=== PATIENT | male | born 1950 | race Caucasian/White ===

== ENCOUNTER 2016-12-15 06:28 | Inpatient (IN) | payer BC, OTHER ==
[2016-11-21 12:42] VITALS: BMI 29.0
--- NOTE | 2016-11-21 13:17 | PAT Medication Instructions ---
Service Date Nov 21, 2016. Current Home Medication List Guaifenesin/Codeine (Robitussin-Ac Syrup), 10 ML PO Q4H PRN for Cough Irbesartan (Avapro), 150 MG PO QAM [Dr Katrin Sarabia], 1 DOSE PO QAM Medication Instructions For Your Scheduled Surgery Dr Katrin Sarabia 1 DOSE PO QAM (per surgeon instructions) - Hold the following medications the morning of surgery: Irbesartan (Avapro), 150 MG PO QAM Guaifenesin/Codeine (Robitussin-Ac Syrup), 10 ML PO Q4H PRN for Cough - Take the following medications as scheduled the NIGHT before surgery: Guaifenesin/Codeine (Robitussin-Ac Syrup), 10 ML PO Q4H PRN for Cough If you have any questions please call us at [phone] or [phone] ( Tamara) or [phone]
--- NOTE | 2016-11-21 14:09 | DIAGNOSTIC IMAGING REPORT ---
CHEST 2 VIEWS ROUTINE HISTORY: Preop. COMPARISON: None. FINDINGS: The lungs are clear. Cardiac silhouette is normal in size. No pleural effusions. No pneumothorax. Mildly tortuous thoracic aorta. IMPRESSION: No acute process. Electronically signed by: Nikolas Bravo M.D. 11/21/2016 2:08 PM Dictated Date/Time: 11/21/2016 2:06 PM
[2016-11-21 14:51] LABS: BASO % 0.4 %; BASO ABS # 0.02 K/uL (0-0.2); COMPLETE YES; EOS % 1.2 %; HEMATOCRIT 45.4 % (42-52); IG% 0.2 %; LYMPH % 23.3 %; LYMPH ABS # 1.14 K/uL (1.2-3.4); MEAN CELL VOLUME 84.7 fL (80-100); MEAN CORPUSCULAR HGB CONC 35.5 g/dl (32-36); MEAN PLATELET VOLUME 10.6 fL (7.4-10.4); MONO % 10.4 %; NEUT % 64.5 %; PLATELET COUNT 172 K/uL (130-400); RED BLOOD COUNT 5.36 M/uL (4.7-6.1)
[2016-11-21 15:00] LABS: URINE APPEARANCE CLEAR (CLEAR); URINE BILIRUBIN NEG (NEG); URINE COLOR DK YELLOW; URINE EPITHELIAL CELL AUTO 0-5 /lpf (0-5); URINE NITRITE NEG (NEG); URINE SPECIFIC GRAVITY 1.023 (1.000-1.030); UROBILINOGEN NEG (NEG); ZZUR CULT IF INDIC CLEAN CATCH NO
[2016-11-21 15:01] LABS: PARTIAL THROMBOPLASTIN RATIO 1.2; PROTHROMBIN TIME (PATIENT) 10.8 SECONDS (9.0-12.0)
[2016-11-21 15:03] LABS: MANUAL MICROSCOPIC REQUIRED? NO; REVIEW REQ? NO
[2016-11-21 15:10] LABS: CALCIUM 9.4 mg/dl (8.5-10.1); CREATININE 1.1 mg/dl (0.60-1.40); POTASSIUM 4.6 mmol/L (3.5-5.1)
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
[~2016-12-15] VITALS: Ht 180.3 cm; Wt 94.3 kg
[~2016-12-15 06:28] MED LIST: ACETAMINOPHEN 500 MG TAB PO SCH; CEFAZOLIN 2000 MG/60 ML D5W 60 ML IV SCH; CeleBREX 200 MG CAP PO SCH; DEXAMETHASONE 4 MG TAB PO SCH; FAMOTIDINE 20 MG TAB PO SCH; GABAPENTIN 300 MG CAP PO SCH; GUAISYP4 PO; IRBE-37 PO; LACTATED RINGER'S 1000ML IV SCH; METOCLOPRAMIDE HCL 10 MG TAB PO SCH; OXYCODONE HCL 10 MG TABCR (OXYCONTIN) PO SCH; POLYMYXIN B SULFATE 100,000 UNITS in NSS 100ML IR SCH; ROPIVACAINE 5MG/ML 30 ML 150 MG, BUPIVACAINE/EPINEPHR 0.5% MPF 30 ML, KETOROLAC TROMETH... INFIL SCH; VANCOMYCIN INJ 400 MG in NSS 100ML IR SCH; [UNRECOGNIZED DRUG - REMARK] PO
[2016-12-15] MEDS ORDERED: BUPIVACAINE 0.5 % 5 MG/1 ML PF 10ML VIAL ONE (06:33)
[2016-12-15] MEDS ORDERED: BUPIVACAINE 0.25% 30 ML VIAL ONE (06:34)
[2016-12-15 07:10] VITALS: BP 184/88; PULSE 58; TEMP 36.5; O2SAT 96; Ht 180.3 cm; Wt 94.3 kg
[2016-12-15] MEDS ORDERED: EpHEDrine SULFATE INJ 50 MG/ML AMP IV PRN (07:45)
[2016-12-15] MEDS ORDERED: ATROPINE SULFATE 0.1 MG/ML 5ML SYR IV PRN (07:45)
[2016-12-15] MEDS ORDERED: FENTANYL CITRATE INJ 50 MCG/1 ML 2 ML VIAL IV PRN (07:45)
[2016-12-15] MEDS ORDERED: ONDANSETRON INJ 2 MG/ML 2 ML VIAL IV PRN ×2 (07:45→11:00)
[2016-12-15] MEDS ORDERED: MIDAZOLAM HCL 1 MG/ML 2ML VIAL ONE (07:59)
[2016-12-15] MEDS ORDERED: FENTANYL CITRATE INJ 50 MCG/1 ML 2 ML VIAL ONE (07:59)
[2016-12-15] MEDS: TRANEXAMIC ACID INJ 1,000 MG in SODIUM CHLORIDE 0.9% 100ML 100 ML IV SCH ×2 (08:38→13:12)
--- NOTE | 2016-12-15 08:53 | History & Physical Bridge Note ---
H&P Re-Evaluation Bridge Note: I have examined the patient, reviewed the History & Physical and in the interval since the performance of the History & Physical I have noted the following changes of clinical significance: No changes noted
[2016-12-15] MEDS ORDERED: ORTHO JOINT ANESTHETIC ONE (09:16)
[2016-12-15] MEDS ORDERED: BUPIVACAINE/EPINEPHRINE 0.25% 1:200,000 30 ML VIAL ONE (09:16)
[2016-12-15] MEDS ORDERED: BACITRACIN 50000 UNIT VIAL ONE (09:17)
[2016-12-15] MEDS ORDERED: POVIDONE-IODINE OP SOLN 30 ML BTL ONE (09:17)
--- NOTE | 2016-12-15 10:52 | [facility] Post Operative Brief Note ---
Immediate Operative Summary Operative Date Dec 15, 2016. Pre-Operative Diagnosis Degenerative joint disease, left knee Post-Operative Diagnosis Degenerative joint disease, left knee POST TRAUMATIC Procedure(s) Performed Left Total Knee Arthroplasty Surgeon Dr Manolo Wilkes Sports Commentator Surgeon(s) Evie Manuel PA-C Estimated Blood Loss 50 Findings SEVERE ACL DEF Specimens A: Left knee bone and tissue Complication(s) None Disposition Recovery Room / PACU
[2016-12-15] MEDS ORDERED: PROPOFOL IV EMULSION 10 MG/ML 20 ML VIAL IV ONE (10:54)
[2016-12-15] MEDS ORDERED: LABETALOL HCL IV 5 MG/ML 20ML ONE (10:54)
[2016-12-15] MEDS ORDERED: LIDOCAINE HCL 2% 2 ML VIAL (20MG/ML) ONE (10:54)
[2016-12-15] MEDS ORDERED: MAGNESIUM HYDROXIDE SUSP 30 ML UDC PO PRN (11:00)
[2016-12-15] MEDS ORDERED: KETOROLAC TROMETHAMINE 30 MG/ML VIAL IV. PRN (11:00)
[2016-12-15] MEDS ORDERED: BISACODYL 10 MG SUPP PR PRN (11:00)
[2016-12-15] MEDS ORDERED: ALUMINUM/MAGNESIUM/SIMETH (MAALOX MAX) 30 ML UDC PO PRN (11:00)
[2016-12-15] MEDS ORDERED: TRAMADOL HCL 50 MG TAB PO PRN (11:00)
[2016-12-15] MEDS ORDERED: DiphenhydrAMINE HCL 50 MG/ML VIAL IV PRN (11:00)
[2016-12-15] MEDS ORDERED: OXYCODONE HCL IR 5 MG TAB (IMMEDIATE RELEASE) PO PRN (11:00)
[2016-12-15] MEDS ORDERED: SOD PHOSPHATE/SOD BIPHOSPHATE ENEMA 132 ML BTL PR PRN (11:00)
[2016-12-15] MEDS ORDERED: ZOLPIDEM TARTRATE 5 MG TAB PO PRN (11:00)
[2016-12-15] MEDS ORDERED: TAMSULOSIN HCL 0.4 MG CAP PO PRN (11:00)
[2016-12-15] MEDS ORDERED: METOCLOPRAMIDE HCL INJ 5 MG/ML 2 ML VIAL IV PRN (11:00)
[2016-12-15] MEDS ORDERED: MoRPHine SULFATE 2 MG/ML CARP IV PRN (11:00)
--- NOTE | 2016-12-15 11:41 | OPERATIVE REPORT ---
DATE OF OPERATION: 12/15/2016 PREOPERATIVE DIAGNOSIS: Severe posttraumatic degenerative arthritis, left knee. POSTOPERATIVE DIAGNOSIS: Same. PROCEDURE: Left total knee with patient matched implant. SURGEON: Dr. Wilkes. PLATFORM MATERIAL HANDLING SUPERVISOR: Evie Manuel PA-C. ANESTHESIA: Spinal. BLOOD LOSS: 50 mL. REPLACEMENT FLUIDS: 1500 mL crystalloid. DRAINS: Hemovac x2. CULTURES: None. COMPLICATIONS: None. COMPONENTS USED: [employer] Waneloviper Knee System: Femur size 7, tibia size 7 x 9, patella size 38. NOTE: Evie Manuel PA-C was present and assisted throughout due to the complicated nature of this case. She helped with preparation and set up, first assisted throughout and personally closed the capsule, subcutaneous and skin layers and applied the postoperative dressing. DESCRIPTION: Following satisfactory spinal, the patient was supine. A tourniquet was placed but not inflated. The lower extremity was prepared with ChloraPrep and draped sterilely. Following a surgical time-out, a midline incision was made with a trivector approach. The knee showed severe posttraumatic changes from an old injury and absence of the anterior cruciate. The posterior cruciate ligament was excised. The patient matched femoral block was applied. Femoral distal rotation and resection were set and completed. The 4-in-1 block was used to finish preparation of the femur. The patient matched tibial block was applied. Tibial resection was completed. Patella was freehand cut. Soft tissue balancing was completed and a trial reduction showed good tensioning and stability on the collateral ligaments, stable range of motion, and the patella tracked well. The trial components were removed. The capsule was prepared with the orthopedic cocktail and after irrigation, the components were cemented with Simplex G cement. A Betadine soak was performed while the cement was hardening. When the cement had hardened, the Betadine was irrigated. Two drains were placed. The arthrotomy was closed with a running suture of 0 V-Loc, the subcutaneous tissues were closed with 2-0 Vicryl and the skin with a running subcuticular stitch of 3-0 V-Loc. Dermabond and a dry dressing were applied. The patient was returned to his bed in stable condition. I attest to the content of the Intraoperative Record and any orders documented therein. Any exceptio ns are noted below.
--- NOTE | 2016-12-15 12:14 | DIAGNOSTIC IMAGING REPORT ---
LEFT KNEE 1 OR 2 VIEWS ROUTINE CLINICAL HISTORY: Degenerative arthritis COMPARISON: None. DISCUSSION: There are postsurgical changes of a total left knee arthroplasty and patellar resurfacing. The femoral tibial components appear well seated. There are overlying surgical drains. There is air in soft tissues consistent with recent surgery. IMPRESSION: Postsurgical changes of a total left knee arthroplasty. Electronically signed by: Koko Rivera M.D. 12/15/2016 12:12 PM Dictated Date/Time: 12/15/2016 12:12 PM
--- NOTE | 2016-12-15 12:25 | Anesthesiology Progress Note ---
Anesthesia Post Op Note Date & Time Dec 15, 2016 at 12:26 Vital Signs Pain Intensity: 0 Vital Signs Past 12 Hours Date Time Temp Pulse Resp B/P Pulse Ox O2 Delivery O2 Flow Rate FiO2 12/15/16 12:15 36.2 79 12 141/85 95 Nasal Cannula 2 12/15/16 12:05 83 24 136/78 94 Nasal Cannula 2 12/15/16 11:55 82 18 137/96 97 Nasal Cannula 2 12/15/16 11:45 77 20 140/86 96 Nasal Cannula 2 12/15/16 11:35 79 20 135/96 100 Mask 10 12/15/16 11:25 80 15 149/109 99 Mask 10 12/15/16 11:17 36.6 82 20 163/97 97 Mask 10 12/15/16 07:10 36.5 58 20 184/88 96 Room Air Notes Mental Status: alert / awake / arousable, participated in evaluation Pt Amnestic to Procedure: Yes Nausea / Vomiting: adequately controlled Pain: adequately controlled Airway Patency, RR, SpO2: stable & adequate BP & HR: stable & adequate Hydration State: stable & adequate Neuraxial Anesthesia: was administered, sensory block is resolving Anesthetic Complications: no major complications apparent
[2016-12-15 12:30] VITALS: BP 154/86; PULSE 76; TEMP 36.4; O2SAT 98
[2016-12-15] MEDS: D5W AND 1/2NSS + 20MEQ KCL 1,000 ML IV SCH ×2 (13:22→23:14)
[2016-12-15 13:30] VITALS: BP 150/80; PULSE 75; TEMP 36.3; O2SAT 93
[2016-12-15 15:40] VITALS: BP 124/77; PULSE 78; TEMP 36.7; O2SAT 96
[2016-12-15] MEDS: ACETAMINOPHEN 500 MG TAB PO SCH ×2 (16:19→22:16)
[2016-12-15] MEDS ORDERED: TRANEXAMIC ACID INJ 1,000 MG in SODIUM CHLORIDE 0.9% 100ML 100 ML IV SCH (17:00)
[2016-12-15] MEDS: CEFAZOLIN IV 2,000 MG in DEXTROSE 5% 50ML 50 ML IV SCH (18:18)
[2016-12-15 19:43] VITALS: BP 112/71; PULSE 82; O2SAT 96
[2016-12-15] MEDS ORDERED: SENNA 8.6 MG TAB PO SCH (21:00)
[2016-12-15] MEDS: OXYCODONE HCL 10 MG TABCR (OXYCONTIN) PO SCH (22:15)
[2016-12-15] MEDS: ASPIRIN 81 MG ECTAB PO SCH (22:16)
[2016-12-15 23:15] VITALS: BP 112/68; PULSE 56; TEMP 36.4; O2SAT 95
[2016-12-16] MEDS: CEFAZOLIN IV 2,000 MG in DEXTROSE 5% 50ML 50 ML IV SCH (01:45)
[2016-12-16 03:25] VITALS: BP 117/78; PULSE 67; TEMP 36.4; O2SAT 98
[2016-12-16 05:30] LABS: MEAN CELL VOLUME 83.7 fL (80-100); MEAN CORPUSCULAR HEMOGLOBIN 29.2 pg (25-34); MEAN CORPUSCULAR HGB CONC 34.9 g/dl (32-36); MEAN PLATELET VOLUME 10.2 fL (7.4-10.4); PLATELET COUNT 172 K/uL (130-400); RED BLOOD COUNT 4.18 M/uL (4.7-6.1)
[2016-12-16] MEDS: ACETAMINOPHEN 500 MG TAB PO SCH ×2 (05:32→14:08)
[2016-12-16 05:54] LABS: CREATININE 1.2 mg/dl (0.60-1.40)
[2016-12-16 05:55] LABS: BUN/CREATININE RATIO 16.2 (10-20); CALCIUM 8.4 mg/dl (8.5-10.1); POTASSIUM 4.6 mmol/L (3.5-5.1)
[2016-12-16] MEDS: OXYCODONE HCL 10 MG TABCR (OXYCONTIN) PO SCH (08:23)
[2016-12-16] MEDS: ASPIRIN 81 MG ECTAB PO SCH (08:23)
[2016-12-16 08:38] VITALS: BP 128/70; PULSE 68; TEMP 36.7; O2SAT 95
[2016-12-16] MEDS ORDERED: PANTOprazole SOD 40 MG TAB PO SCH (09:00)
[2016-12-16] MEDS ORDERED: IRBESARTAN 150 MG TAB PO SCH (09:00)
[2016-12-16] MEDS ORDERED: MULTIVITAMIN TAB PO SCH (09:00)
[2016-12-16] MEDS: D5W AND 1/2NSS + 20MEQ KCL 1,000 ML IV SCH (09:30)
[2016-12-16 10:38] VITALS: BP 128/70; PULSE 68; TEMP 36.7; O2SAT 95
[2016-12-16 10:41] VITALS: O2SAT 95
--- NOTE | 2016-12-16 11:09 | Orthopedic Progress Note ---
Orthopedic Progress Note Date of Service Dec 16, 2016. Subjective Post OP Day: 1 Reports: feeling well, pain controlled w PO medications, Denies: SOB, chest pain , complaints, nausea / vomiting Objective calves soft nontender, N/V intact, dressing C/D/I, A&O x3, toes mobile, hemovac drainage (125 LAST SHIFT) Date Time Temp Pulse Resp B/P Pulse Ox O2 Delivery O2 Flow Rate FiO2 12/16/16 10:41 95 Room Air 12/16/16 10:38 36.7 68 16 95 Room Air 12/16/16 08:38 36.7 68 16 128/70 95 Room Air 12/16/16 08:08 Room Air 12/16/16 03:25 36.4 67 16 117/78 98 Room Air 12/15/16 23:20 Room Air 12/15/16 23:15 36.4 56 18 112/68 95 Room Air 12/15/16 19:43 82 18 112/71 96 Room Air 12/15/16 15:40 36.7 78 18 124/77 96 Nasal Cannula 2.0 12/15/16 13:30 36.3 75 18 150/80 93 Nasal Cannula 2.0 12/15/16 12:30 Nasal Cannula 2.0 12/15/16 12:30 Nasal Cannula 2.0 12/15/16 12:30 36.4 76 16 154/86 98 Nasal Cannula 2.0 12/15/16 12:15 36.2 79 12 141/85 95 Nasal Cannula 2 12/15/16 12:05 83 24 136/78 94 Nasal Cannula 2 12/15/16 11:55 82 18 137/96 97 Nasal Cannula 2 12/15/16 11:45 77 20 140/86 96 Nasal Cannula 2 12/15/16 11:35 79 20 135/96 100 Mask 10 12/15/16 11:25 80 15 149/109 99 Mask 10 12/15/16 11:17 36.6 82 20 163/97 97 Mask 10 Laboratory Results 24 Hours: Test 12/16/16 05:15 Hematocrit 35.0 % Hemoglobin 12.2 g/dL Assessment & Plan Assessment: POD 1 TKA Plan: HOME TODAY W [facility] HH LEAVE DRESSING DRAIN IN PLACE Inhouse Planning Pain Management: Celebrex, Oxycontin, PO Tylenol, Oxy IR DVT Prophylaxis: TEDs, SCDs, ASA Discharge Planning Discharge Planning: home with home health Pain Management: Celebrex, Oxycontin, PO Tylenol, Oxy IR DVT Prophylaxis: TEDs, ASA
[2016-12-16] MEDS ORDERED: ONDA8TAB6 PO (11:18)
[2016-12-16] MEDS ORDERED: ACET-1138 PO (11:18)
[2016-12-16] MEDS ORDERED: OXYSR10 PO (11:18)
[2016-12-16] MEDS ORDERED: CLB200 PO (11:18)
[2016-12-16] MEDS ORDERED: RXC5 PO (11:18)
[2016-12-16] MEDS ORDERED: ASPEC81 PO (11:18)
--- NOTE | 2016-12-16 11:20 | Discharge Instructions ---
Discharge Instructions Date of Service Dec 16, 2016. Admission Reason for Admission: Left Knee Degenerative Arthritis Discharge Discharge Diagnosis / Problem: left knee osteoarthritis Discharge Goals Goal(s): Decrease discomfort, Improve function Activity Recommendations Activity Limitations: as noted below Lifting Limitations: until after follow-up appointment Exercise/Sports Limitations: until after follow-up appointment May Resume Sexual Activity: when tolerated Shower/Bathe: keep incision dry (Keep dressing in place for 7 days.) Driving or Machine Use: When cleared by Dr. Wilkes's office. Weightbearing Status: Left weightbearing (as tolerated) . Instructions / Follow-Up Instructions / Follow-Up ACTIVITY RECOMMENDATIONS: SELF CARE INSTRUCTIONS AFTER TOTAL KNEE REPLACEMENT A. You may need to continue a physical therapy program after discharge from the hospital. There are several options available to you. Your doctor will assist you in selecting the best one for you. 1. An out-patient facility 3 times a week for therapy. 2. Home therapy for 1 to 2 weeks with outpatient therapy to follow. 3. Continue working on all exercises taught by physical therapy three times a day for 20 minutes on non-therapy days. Your goals should be to increase the bending of your knee to 90 degrees and beyond and to fully straighten your knee. Ice and elevate knee after exercise. B. Weight as tolerated with a walker or as instructed by your physician. C. It is okay to shower if minimal to no drainage from incision. No Baths. Do not soak wound. D. Make walking a part of your daily routine. Be up as much as comfortable with rest periods throughout the day. Rest with leg elevation is very important. Use the ice wrap frequently for the first 3-4 weeks. E. There are no restrictions on activities. You may ride in a car, shop, participate in credit card clerk and all social activities. F. Wear the long elastic stockings (ALLA hose) 20 hours a day for one month after surgery. They can be removed several times a day for laundering and when showering. G. Silverlon- This is a large adhesive bandage that contains silver ions. This helps your incision heal by fighting off bacteria and protecting it from the outside environment. You are permitted to shower with this dressing. This will remain on your incision for 7 days and then should be removed. Some visible blood or drainage through the dressing window is normal. If there is significant drainage or leaking noted before the 7 days notify your doctor's office immediately. Once removed, keep incision clean and dry. If there is any drainage or redness noted, please call your surgeon. SPECIAL CARE INSTRUCTIONS: VERY IMPORTANT TO READ AND REVIEW A. Take Coumadin, Xarelto, Aspirin or Lovenox (blood thinning medications) as directed by your doctor. If on Coumadin, have a pro-time (blood test) drawn according to your doctor's instructions. This will tell the doctor how well the Coumadin is thinning your blood. B. There are a few signs you need to watch for after you are home. Call [facility] if you notice any of the followin. Increased severe knee pain. Some pain is expected especially when you exercise. 2. Increased swelling in your leg or knee; pain or swelling of the calf muscle in either lower leg. 3. Any redness or fluid drainage from the incision. 4. Shortness of breath or chest pain. 5. A Temperature of 101 degrees F or greater. C. Please call [facility] at if you have any concerns or questions about your operation or recovery. The doctor or his nurse will return your call promptly. D. You must take antibiotics before dental work, bladder, bowel or other surgery. Your doctor will provide you with a permanent care to carry describing this precaution. FOLLOW UP VISIT: If appointment is not already scheduled: Please call [facility] to make a follow-up appointment for one month after your surgery at . Current Hospital Diet Patient's current hospital diet: Regular Diet Discharge Diet Recommended Diet: Regular Diet Procedures Procedures Performed: Left Total Knee Arthroplasty Pending Studies Studies pending at discharge: no Medical Emergencies . Who to Call and When: Medical Emergencies: If at any time you feel your situation is an emergency, please call [phone] immediately. . Non-Emergent Contact Non-Emergency issues call your: Surgeon Call Non-Emergent contact if: temperature is above 101, your pain is not controlled, your pain is worsening, wound has increased drainage, wound has increased redness, wound has increased pain . "Provider Documentation" section prepared by Jagdish Holm. VTE Core Measure Inpt VTE Proph given/why not?: Other Anticoagulation (Aspirin 81 mg every 12 hours for 30 days), T.E.D. Stockings
[2016-12-16 11:53] VITALS: BP 120/70; PULSE 62; TEMP 36.7; O2SAT 97
[2016-12-17] MEDS ORDERED: CeleBREX 200 MG CAP PO SCH (21:00)
== END 2016-12-16 16:00 | disposition home health service (06) | DRG 470 ==
LOC: ENRESERVDT → ENRESERVTM → C.ACU 06:28 → C.3E 10:55
PROVIDERS: ADMIT Orthopaedic Surgery; ATTEND Orthopaedic Surgery
PROC: 0SRD0J9 Replacement of Left Knee Joint with Synthetic Substitute, Cemented, Open Approach (ICD-10-PCS; principal; 2016-12-15 09:10)
DX: M17.32 Unilateral post-traumatic osteoarthritis, left knee (principal); I10 Essential (primary) hypertension; Z87.891 Personal history of nicotine dependence; Z79.899 Other long term (current) drug therapy